=== PATIENT | female | born 1995 | race Caucasian/White ===

== ENCOUNTER 2021-03-25 14:30 | Emergency (ER) | payer OTHER ==
[~2021-03-25] VITALS: Ht 162.6 cm; Wt 84.4 kg
[2021-03-25] MEDS ORDERED: AMOXIL 875 MG875 M1 PO (15:58)
[2021-03-25 16:03] VITALS: BP 134/72
== END 2021-03-25 16:04 | disposition home or self-care (01) ==
LOC: M.ERS 14:30
DX: H66.92 Otitis media, unspecified, left ear (principal); Z90.49 Acquired absence of other specified parts of digestive tract; Z90.89 Acquired absence of other organs; Z88.0 Allergy status to penicillin